=== PATIENT | female | born 1930 | race Caucasian/White ===

== ENCOUNTER 2017-12-30 00:24 | Inpatient (IN) | payer MEDICARE ==
[2017-12-30 01:10] LABS: Hemoglobin 11.9 g/dL (12.0-16.0); Red Blood Cell (RBC) Count 3.84 mill/uL (4.20-5.40); White Blood Cell (WBC) Count 7.2 thou/uL (4.8-10.8)
[2017-12-30 01:11] LABS: #Basophils 0.1 thou/uL (0.0-0.2); #Eosinphils 0.2 thou/uL (0.0-0.7); #Lymphocytes 2.8 thou/uL (1.20-3.40); #Monocytes 0.6 thou/uL (0.11-0.59); #Neutrophils 3.5 thou/uL (1.40-6.50); %Basophils 1.2 % (0.0-1.0); %Eosinophils 2.2 % (0.0-10.0); %Lymphocytes 38.4 % (21.0-51.0); %Monocytes 8.7 % (0.0-10.0); %Neutrophils 49.5 % (42.0-75.0); Mean Corpuscular HGB CONC 35.3 g/dL (32.0-36.0); Mean Corpuscular Volume 87.9 fL (78.0-98.0); Mean Platelet Volume 7.2 fL (7.4-10.4); Platelet Count 201 thou/uL (130-400); RBC Distribution Width 11.3 % (11.5-14.5)
[2017-12-30] MEDS ORDERED: Pantoprazole 40 MG VIAL ONE (01:12)
[2017-12-30] MEDS ORDERED: Pantoprazole 80 MG, Admixture Fee 1 EACH in Sodium Chloride 0.9% 100 ML IVP SCH (01:15)
[2017-12-30 01:18] LABS: PTT 32.9 SEC (22.9-36.1); Prothrombin Time 13.5 SEC (12.0-14.7)
[2017-12-30 01:26] LABS: ALT (SGPT) 9 U/L (8-55); AST (SGOT) 17 U/L (5-34); Albumin 3.7 g/dL (3.4-4.8); Alkaline Phosphatase 65 U/L (40-150); Anion Gap 14 mmol/L (10-20); BUN (Urea Nitrogen) 11 mg/dL (9.8-20.1); Bilirubin, Total 0.3 mg/dL (0.2-1.2); Calc. Creatinine Clearance 0 mL/min (70-130); Calcium 8.5 mg/dL (7.8-10.44); Carbon Dioxide 23 mmol/L (23-31); Chloride 107 mmol/L (98-107); Estimated GFR-MDRD 72; Globulin 2.5 g/dL (2.4-3.5); Glucose 89 mg/dL (83-110); Potassium 4.3 mmol/L (3.5-5.1); Protein, Total 6.2 g/dL (6.0-8.3); Sodium 140 mmol/L (136-145)
[2017-12-30] MEDS ORDERED: Lorazepam 2 MG/ML VIAL ONE (01:38)
[2017-12-30] MEDS ORDERED: Acetaminophen 325 MG TAB PO PRN (02:52)
[2017-12-30 03:53] LABS: #Basophils 0.1 thou/uL (0.0-0.2); #Eosinphils 0.2 thou/uL (0.0-0.7); #Lymphocytes 2.7 thou/uL (1.20-3.40); #Monocytes 0.7 thou/uL (0.11-0.59); #Neutrophils 4.2 thou/uL (1.40-6.50); %Basophils 1.1 % (0.0-1.0); %Eosinophils 2.1 % (0.0-10.0); %Lymphocytes 34.3 % (21.0-51.0); %Monocytes 8.9 % (0.0-10.0); %Neutrophils 53.6 % (42.0-75.0); Hemoglobin 10.7 g/dL (12.0-16.0); Mean Corpuscular HGB CONC 34.1 g/dL (32.0-36.0); Mean Corpuscular Hemoglobin 30.2 pg (27.0-31.0); Mean Corpuscular Volume 88.6 fL (78.0-98.0); Mean Platelet Volume 6.8 fL (7.4-10.4); Platelet Count 202 thou/uL (130-400); RBC Distribution Width 11.2 % (11.5-14.5); Red Blood Cell (RBC) Count 3.55 mill/uL (4.20-5.40); White Blood Cell (WBC) Count 7.8 thou/uL (4.8-10.8)
[2017-12-30 04:13] LABS: Anion Gap 10 mmol/L (10-20); BUN (Urea Nitrogen) 10 mg/dL (9.8-20.1); Calc. Creatinine Clearance 0 mL/min (70-130); Calcium 8.4 mg/dL (7.8-10.44); Carbon Dioxide 26 mmol/L (23-31); Chloride 109 mmol/L (98-107); Estimated GFR-MDRD 82; Glucose 117 mg/dL (83-110); Potassium 3.9 mmol/L (3.5-5.1); Sodium 141 mmol/L (136-145)
[2017-12-30] MEDS: Sodium Chloride 0.9% 1,000 ML IV SCH (04:45)
[2017-12-30 06:12] VITALS: BMI 29.2
[2017-12-30] MEDS: Levothyroxine Sodium 100 MCG TAB PO SCH (06:43)
[2017-12-30] MEDS ORDERED: Pantoprazole 40 MG VIAL IVP SCH (09:00)
--- NOTE | 2017-12-30 09:02 | HP ---
CHIEF COMPLAINT: Bloody stools. HISTORY OF PRESENT ILLNESS: Patient is an 87-year-old lady who lives with her family with a history of severe dementia who comes in to the hospital with complaints of bloody diarrhea x1 day. The patie nt's daughter who is at the bedside stated that the patient has been having on and off diarrhea since 12/20/2017 and this is most likely attributed to patient being previously constipated and patient be ing on three stool softeners. The patient's daughter stated that she took her off of the stool softe ners since she has been having intermittent diarrhea. She also stated that she did call her PCP's tim rse practitioner who is currently out of town and left a voicemail in regards to the intermediate aby rrhea. Patient's daughter stated that today when she went in to check on her mom to change her diape r, she noticed a significant maroonish colored stool and also some clots and when she was wiping her mother, she noticed a significant amount of blood in the stool which concerned her, so she brought he r into the hospital for further evaluation. The patient using any recent ibuprofen or Advil. She salguero s only been taking some Tylenol especially at nighttime. The patient is currently only on aspirin. She is not on any blood thinners either. Her last colonoscopy was many years ago according to the jose brink and she was told that she does have some diverticulosis. PAST MEDICAL HISTORY: She has a history of bradycardia, dementia, hypothyroidism, and questionable s eizures. PAST SURGICAL HISTORY: She does have history of pacemaker insertion, cholecystectomy, hysterectomy, ankle surgery and right shoulder surgery. FAMILY HISTORY: Mother had strokes. MEDICATIONS: She takes levothyroxine 100 mcg daily, melatonin at night, Tylenol two extra strength a t night. She takes potassium chloride daily and donepezil unknown dose daily. ALLERGIES: She is allergic to significant amount of medications which currently the patient's family did not bring in and was told to bring in medications as I mentioned above. REVIEW OF SYSTEMS: Unable to obtain since patient is very severely demented. PHYSICAL EXAMINATION: VITAL SIGNS: She is afebrile at 98.3, 18, 64, heart rate 160/100, 94% room air. GENERAL: She is awake and not oriented x3 at all. CARDIOVASCULAR: S1, S2 present, no murmurs, rubs or gallops. LUNGS: Clear to auscultation. No rhonchi or wheezes noted. ABDOMEN: Soft. Bowel sounds are present x2. No grimace on palpating the patient's abdomen area. EXTREMITIES: She does have some mild ankle edema which is greater on the left than the right. Pedal pulses are present x2. NEUROLOGIC: She is able to move all her 4 extremities. No deficits noted. Mentation tillman, she is a wake, alert; however, she is completely disoriented. SKIN: No lesions noted. LABORATORY DATA: Are as following; WBC of 7.2, hemoglobin 11.9, hematocrit 33.7 and platelets of 201 . Chemistry: Sodium of 140, potassium 4.3, BUN of 11, creatinine 0.76. ASSESSMENT AND PLAN: The patient is an 87-year-old female who presents to the hospital with dark blo ese hematochezia x1. 1. Hematochezia. Currently, patient is stable. Vital signs are stable. Her hemoglobin and hematoc rit is stable. We will type and screen her. We will also consult GI. She has been started on a PPI ; however, I am not sure if this is most likely a lower gastrointestinal bleed. I did not mention th is, but the daughter states that she did have a history of ulcer when patient's daughter was young. She remembers her father saying that. We will start with some conservative management. Also, if she does have diarrhea, we will send it for stool studies. The patient has been eating and drinking. W e will continue patient on clear liquid and await GI's recommendation. 2. Mild anemia. We will continue to monitor. This is most likely secondary to her current GI hemat ochezia. 3. Dementia. We will continue her home medications. 4. Hypothyroidism. We will continue her home medications.
[2017-12-30] MEDS ORDERED: hydrALAZINE 20 MG/ML VIAL SLOW IVP PRN (09:44)
--- NOTE | 2017-12-30 14:30 | PDOC.EVN ---
Event Note - Event Note Event Note: Pt seen and examined. care discussed w daughter at bedside.\ Pt very confsed and trying to get OOB No more bloody stools so far. NAD CTA b/l RRR H/H stable. cont PPI, follow GI recs-pending am labs
[2017-12-30] MEDS ORDERED: GoLYTELY 4,000 ml Bottle PO SCH (18:00)
[2017-12-30] MEDS ORDERED: Ziprasidone 20 MG VIAL IM SCH (18:30)
[2017-12-30] MEDS ORDERED: Sterile Water 10 ML VIAL FS SCH (18:30)
[2017-12-30] MEDS: Pantoprazole 40 MG VIAL IVP SCH (20:29)
--- NOTE | 2017-12-31 00:58 | CON ---
DATE OF CONSULTATION: 12/30/2017 REFERRING PHYSICIAN: Dr. June Agudelo, [facility] [place] [facility]. REASON FOR CONSULTATION: Hematochezia. HISTORY OF PRESENT ILLNESS: Carla Menon is a very pleasant 87-year-old female, hospitaliz ed overnight because hematochezia. The patient is awake and alert, but does not communicate. She al so has history of hard of hearing. She also has history of dementia. The patient really does not ve rbalize anything. The patient's daughter was in the room and she was able to give me the history. A pparently, Ms. Menon living with her daughter. The patient does see Dr. Tamia Christine on a regul ar basis. She has been on a bowel regimen consist of different stool softeners and she has a stool e very day. She has not been constipated. Apparently a week ago, she had diarrhea for several days. Because of the diarrhea, her daughter stopped giving the stool softener. However, Ms. Menon is sti ll having regular bowel movements. The patient's daughter noticed her mother passing a fairly large amount of blood and blood clot in the stool. She changed the diaper and then she had another bloody stool subsequently. The patient was brought to the ER because of above reason. The patient has no p rior history of any GI bleeding. The patient was constipated before and started on stool softener an d she began to have regular stool. There is no history of abdominal pain, nausea, or vomiting. She had another small bloody stool today as per the nurses. The lab data shows admitting CBC, WBC 7200; hemoglobin 11.9, dropping to 10.7 this morning; hematocrit 33.7, dropping to 31.5. She has no releva nt history. ALLERGIES: As listed in the chart. SOCIAL HISTORY: The patient does not smoke or drink alcohol. MEDICAL ILLNESSES: 1. Dementia. 2. Hypothyroidism. 3. Bradycardia. 4. Questionable history of seizures. 5. Status post pacemaker insertion. 6. Status post cholecystectomy. 7. Status post hysterectomy. 8. History of ankle surgery and right shoulder surgery. MEDICATIONS: List reviewed, which include levothyroxine; melatonin; Tylenol Extra Strength during ni ght time; also potassium supplement; and donepezil, the dose is unknown. FAMILY HISTORY: Mother had a stroke. REVIEW OF SYSTEMS: A 10-point systems review unable to obtain because of the patient's dementia. PHYSICAL EXAMINATION: GENERAL: Revealed a very pleasant female, appears very comfortable, in no distress. She d oes not verbalize. VITAL SIGNS: Afebrile. Her pulse is 64, blood pressure 160/90. HEENT: Conjunctivae clear. NECK: Supple. No adenitis or thyromegaly noted. CARDIOVASCULAR SYSTEM: First and second heart sounds normal. LUNGS: Clear to auscultation. ABDOMEN: Soft to palpate. Abdomen is nontender. There is no organomegaly or masses. Bowel sounds normal. EXTREMITIES: Reveal no edema. I wanted to do a rectal exam at the bedside and the patient got very agitated that really does not wa nt to have a rectal exam. The family was in the room and they tried to does not want to have a rectal exam. CLINICAL IMPRESSION: 1. Hematochezia, etiology unclear. The patient has no abdominal pain, nausea or vomiting. Abdomina l exam revealed benign and nontender. Blood count has dropped slightly from 11.9 to 10.7. 2. Mild anemia due to blood loss. 3. Dementia. 4. Hypothyroidism. 5. Status post pacemaker implant. I had a long talk with the patient's daughter about the plan of treatment, one is to observe and watc h and not to do anything, will assess colonoscopy. She was explained to colonoscopy prep puente n of GoLYTELY and cleaning out. The patient will be cleaned out, colonoscopy can be done. The patie nt's family wishes to proceed with colonoscopy. I will start the GoLYTELY prep today and plan for co lonoscopy tomorrow morning. In the meantime, we would recommend follow up H&H and transfuse as neede d.
[2017-12-31] MEDS: Sodium Chloride 0.9% 1,000 ML IV SCH (01:00)
[2017-12-31] MEDS: Levothyroxine Sodium 100 MCG TAB PO SCH (04:17)
[2017-12-31 04:49] LABS: Hemoglobin 8.1 g/dL (12.0-16.0)
[2017-12-31 04:57] LABS: Anion Gap 11 mmol/L (10-20); BUN (Urea Nitrogen) 9 mg/dL (9.8-20.1); Calc. Creatinine Clearance 78 mL/min (70-130); Calcium 8.2 mg/dL (7.8-10.44); Carbon Dioxide 25 mmol/L (23-31); Chloride 110 mmol/L (98-107); Estimated GFR-MDRD 86; Glucose 103 mg/dL (83-110); Potassium 3.6 mmol/L (3.5-5.1); Sodium 142 mmol/L (136-145)
[2017-12-31] MEDS: Pantoprazole 40 MG VIAL IVP SCH ×2 (08:09→21:09)
--- NOTE | 2017-12-31 14:03 | PDOC.PN ---
- Subjective Encounter Start Date: 12/31/17 Encounter Start Time: 14:01 Subjective: pt non cooperative this am.would not answer Qs or open eyes. -: RN report few bloody BM overnght - Objective Resuscitation Status: Resuscitation Status DNR:Do Not Resuscitate MAR Reviewed: Yes Vital Signs & Weight: Vital Signs (12 hours) Temp Pulse Resp BP Pulse Ox 12/31/17 12:42 98.2 F 72 20 179/73 H 94 L 12/31/17 08:00 97.4 F L 72 20 12/31/17 04:00 97.4 F L 72 20 135/62 94 L Weight Weight 175 lb 6 oz I&O: 12/30/17 12/31/17 01/01/18 06:59 06:59 06:59 Intake Total 1080 Balance 1080 Result Diagrams: 12/31/17 04:01 12/31/17 04:01 Phys Exam - Physical Examination Constitutional: NAD HEENT: PERRLA, moist MMs, sclera anicteric, oral pharynx no lesions Neck: no nodes, no JVD, supple, full ROM Respiratory: no wheezing, no rales, no rhonchi, clear to auscultation bilateral Cardiovascular: RRR, no significant murmur, no rub Gastrointestinal: soft, non-tender, no distention, positive bowel sounds Musculoskeletal: no edema, pulses present Neurological: non-focal, normal sensation, moves all 4 limbs Skin: no rash Dx/Plan (1) Lower GI bleed Code(s): K92.2 - GASTROINTESTINAL HEMORRHAGE, UNSPECIFIED Status: Acute (2) Blood loss anemia Code(s): D50.0 - IRON DEFICIENCY ANEMIA SECONDARY TO BLOOD LOSS (CHRONIC) Status: Acute Comment: Monitor closely (3) Hypothyroid Code(s): E03.9 - HYPOTHYROIDISM, UNSPECIFIED Status: Chronic (4) Dementia Code(s): F03.90 - UNSPECIFIED DEMENTIA WITHOUT BEHAVIORAL DISTURBANCE Status: Chronic - Plan PT/OT, psychosocial rehabilitation counselor, out of bed/ambulate, DVT proph w/SCDs Colonoscopy today.monitor H/H -: transfuse if symptomatic or <7. -: am labs -: home meds as below. -: HD stable for now * . Review of Systems - Review of Systems Other: can not be obtained due to dementia - Medications/Allergies Allergies/Adverse Reactions: Allergies Allergy/AdvReac Type Severity Reaction Status Date / Time morphine Allergy Severe Anaphylaxis Verified 12/30/17 04:44 azithromycin Allergy Unknown Verified 12/30/17 04:46 carbamazepine [From Tegretol] Allergy Unknown Verified 12/30/17 04:49 levofloxacin [From Levaquin] Allergy Unknown Verified 12/30/17 04:45 phenobarbital Allergy Unknown Verified 12/30/17 04:49 tetracycline Allergy Unknown Verified 12/30/17 04:49 fenofibrate Allergy Verified 12/30/17 04:53 Sulfa (Sulfonamide Allergy Verified 12/30/17 04:44 Antibiotics) Medications: Current Medications Acetaminophen (Tylenol) 650 mg PO Q4H PRN PRN Reason: Headache/Fever or Pain Hydralazine HCl (Apresoline) 10 mg SLOW IVP Q4H PRN PRN Reason: SBP>165 Sodium Chloride (Normal Saline 0.9%) 1,000 mls @ 50 mls/hr IV .Q20H KALE Last Admin: 12/31/17 01:00 Dose: 1,000 mls Levothyroxine Sodium (Synthroid) 100 mcg PO 0600 KALE Last Admin: 12/31/17 04:17 Dose: 100 mcg Pantoprazole Sodium (Protonix) 40 mg IVP Q12HR KALE Last Admin: 12/31/17 08:09 Dose: 40 mg Quetiapine Fumarate (Seroquel) 25 mg PO HSPRN PRN PRN Reason: Agitation Last Admin: 12/31/17 04:17 Dose: 25 mg Sodium Chloride (Flush - Normal Saline) 10 ml IVF Q12HR KALE Last Admin: 12/31/17 08:09 Dose: 10 ml Sodium Chloride (Flush - Normal Saline) 10 ml IVF PRN PRN PRN Reason: Saline Flush
[2017-12-31] MEDS ORDERED: Labetalol 100 MG/20 ML MDV ONE (14:21)
[2017-12-31] MEDS ORDERED: PROPOFOL 200 MG/20 ML VIAL ONE (14:21)
[2017-12-31] MEDS ORDERED: Melatonin 3 MG TAB PO SCH (22:30)
[2017-12-31] MEDS ORDERED: Lorazepam 1 MG TAB PO SCH (22:30)
[2018-01-01] MEDS: Sodium Chloride 0.9% 1,000 ML IV SCH ×2 (03:17→23:10)
[2018-01-01 04:24] LABS: Hemoglobin 8.2 g/dL (12.0-16.0)
[2018-01-01] MEDS: Levothyroxine Sodium 100 MCG TAB PO SCH (05:30)
[2018-01-01] MEDS: Pantoprazole 40 MG VIAL IVP SCH ×2 (08:01→20:58)
[2018-01-01] MEDS ORDERED: Lorazepam 1 MG TAB PO SCH (12:00)
[2018-01-01] MEDS ORDERED: Melatonin 3 MG TAB PO SCH (12:00)
[2018-01-01 13:50] LABS: Hemoglobin 9.2 g/dL (12.0-16.0)
[2018-01-01] MEDS ORDERED: traZODone HCl 50 MG TAB PO PRN (15:33)
--- NOTE | 2018-01-01 15:35 | PDOC.PN ---
- Subjective Encounter Start Date: 01/01/18 Encounter Start Time: 15:34 Subjective: pt eating lunch & then got agitated -: daughter at bedside.no more bloody BMS -: pt discharged but became lethargic,so DC held.H.H stable - Objective Resuscitation Status: Resuscitation Status DNR:Do Not Resuscitate Vital Signs & Weight: Vital Signs (12 hours) Temp Pulse Resp BP BP Pulse Ox 01/01/18 13:08 81 94 L 01/01/18 08:00 97.4 F L 60 16 100 01/01/18 07:46 97.4 F L 60 16 155/81 H 100 01/01/18 04:00 98.1 F 63 20 166/79 H 96 Weight Admit Weight 175 lb 6 oz Weight 175 lb 6 oz I&O: 12/31/17 01/01/18 01/02/18 06:59 06:59 06:59 Intake Total 1080 Balance 1080 Result Diagrams: 01/01/18 13:41 12/31/17 04:01 Phys Exam - Physical Examination Constitutional: NAD HEENT: PERRLA, moist MMs, sclera anicteric, oral pharynx no lesions Neck: no JVD Respiratory: no wheezing, no rales Cardiovascular: RRR Gastrointestinal: soft, non-tender, no distention, positive bowel sounds Musculoskeletal: no edema, pulses present Neurological: moves all 4 limbs agitation Dx/Plan (1) Lower GI bleed Code(s): K92.2 - GASTROINTESTINAL HEMORRHAGE, UNSPECIFIED Status: Acute Comment: s/p colonoscopy -shows only diverticulosis.No active bleed (2) Blood loss anemia Code(s): D50.0 - IRON DEFICIENCY ANEMIA SECONDARY TO BLOOD LOSS (CHRONIC) Status: Acute Comment: Monitor closely (3) Hypothyroid Code(s): E03.9 - HYPOTHYROIDISM, UNSPECIFIED Status: Chronic (4) Dementia Code(s): F03.90 - UNSPECIFIED DEMENTIA WITHOUT BEHAVIORAL DISTURBANCE Status: Chronic - Plan plan discussed w/ family, PT/OT, DVT proph w/SCDs Hold DC.recheck H/H tomorrow. -: HD stable. no changes in Vitals .monitor -: avoid narcotics/sedatives in day.will give mild sedative at night -: re assess tomorrow am * . Review of Systems - Review of Systems Other: can not be obtained due to extreme dementia and agitation - Medications/Allergies Allergies/Adverse Reactions: Allergies Allergy/AdvReac Type Severity Reaction Status Date / Time morphine Allergy Severe Anaphylaxis Verified 12/30/17 04:44 azithromycin Allergy Unknown Verified 12/30/17 04:46 carbamazepine [From Tegretol] Allergy Unknown Verified 12/30/17 04:49 levofloxacin [From Levaquin] Allergy Unknown Verified 12/30/17 04:45 phenobarbital Allergy Unknown Verified 12/30/17 04:49 tetracycline Allergy Unknown Verified 12/30/17 04:49 fenofibrate Allergy Verified 12/30/17 04:53 Sulfa (Sulfonamide Allergy Verified 12/30/17 04:44 Antibiotics) Medications: Current Medications Acetaminophen (Tylenol) 650 mg PO Q4H PRN PRN Reason: Headache/Fever or Pain Hydralazine HCl (Apresoline) 10 mg SLOW IVP Q4H PRN PRN Reason: SBP>165 Sodium Chloride (Normal Saline 0.9%) 1,000 mls @ 50 mls/hr IV .Q20H KALE Last Admin: 01/01/18 03:17 Dose: 1,000 mls Levothyroxine Sodium (Synthroid) 100 mcg PO 0600 KALE Last Admin: 01/01/18 05:30 Dose: 100 mcg Pantoprazole Sodium (Protonix) 40 mg IVP Q12HR [facility]ALE Last Admin: 01/01/18 08:01 Dose: 40 mg Sodium Chloride (Flush - Normal Saline) 10 ml IVF Q12HR KALE Last Admin: 01/01/18 08:01 Dose: 10 ml Sodium Chloride (Flush - Normal Saline) 10 ml IVF PRN PRN PRN Reason: Saline Flush Trazodone HCl (Desyrel) 50 mg PO HS PRN PRN Reason: insomina Stop: 01/01/18 21:01
[2018-01-02 04:46] LABS: Hemoglobin 8.8 g/dL (12.0-16.0)
[2018-01-02 05:07] LABS: Anion Gap 9 mmol/L (10-20); BUN (Urea Nitrogen) 8 mg/dL (9.8-20.1); Calc. Creatinine Clearance 71 mL/min (70-130); Calcium 8.1 mg/dL (7.8-10.44); Carbon Dioxide 28 mmol/L (23-31); Chloride 107 mmol/L (98-107); Estimated GFR-MDRD 78; Glucose 116 mg/dL (83-110); Potassium 3.1 mmol/L (3.5-5.1); Sodium 141 mmol/L (136-145)
[2018-01-02] MEDS: Levothyroxine Sodium 100 MCG TAB PO SCH (06:06)
[2018-01-02] MEDS ORDERED: Diphenoxylate HCl/Atropine Tablet PO PRN (11:53)
[2018-01-02] MEDS: D5 1/2 NS w/20 mEq KCL 1,000 ML IV SCH (14:14)
--- NOTE | 2018-01-02 14:40 | PDOC.PN ---
- Subjective Encounter Start Date: 01/02/18 Encounter Start Time: 14:38 Subjective: daughter at bedside,reports loose stools without blood -: reports that her mom is still very weak - Objective Resuscitation Status: Resuscitation Status DNR:Do Not Resuscitate MAR Reviewed: Yes Vital Signs & Weight: Vital Signs (12 hours) Temp Pulse Resp BP Pulse Ox 01/02/18 08:43 99.3 F 102 H 16 164/86 H 94 L 01/02/18 08:00 99.3 F 102 H 16 94 L 01/02/18 05:20 97.9 F 94 18 165/73 H 94 L Weight Admit Weight 175 lb 6 oz Weight 175 lb 6 oz I&O: 01/01/18 01/02/18 01/03/18 06:59 06:59 06:59 Intake Total 100 Balance 100 Result Diagrams: 01/02/18 04:03 01/02/18 04:03 Additional Labs: Microbiology 01/01/18 15:32 Stool - Liquid Stool Lactoferrin - Final 01/01/18 15:32 Stool - Liquid Shiga Toxin Test - Final 01/01/18 15:32 Stool - Liquid Escherichia coli 0157 Culture - Final 01/01/18 15:32 Stool - Liquid Stool Culture - Preliminary Labs reviewed. Iron level -30 Phys Exam - Physical Examination Constitutional: NAD pale HEENT: PERRLA, moist MMs, sclera anicteric, oral pharynx no lesions Neck: no JVD Respiratory: no wheezing, no rales, no rhonchi, clear to auscultation bilateral Cardiovascular: RRR, no significant murmur Gastrointestinal: soft, non-tender, no distention, positive bowel sounds Musculoskeletal: no edema, pulses present Neurological: non-focal, normal sensation, moves all 4 limbs Dx/Plan (1) Lower GI bleed Code(s): K92.2 - GASTROINTESTINAL HEMORRHAGE, UNSPECIFIED Status: Acute Comment: s/p colonoscopy -shows only diverticulosis.No active bleed (2) Hypokalemia Code(s): E87.6 - HYPOKALEMIA Status: Acute (3) Blood loss anemia Code(s): D50.0 - IRON DEFICIENCY ANEMIA SECONDARY TO BLOOD LOSS (CHRONIC) Status: Acute Comment: Monitor closely (4) Hypothyroid Code(s): E03.9 - HYPOTHYROIDISM, UNSPECIFIED Status: Chronic (5) Dementia Code(s): F03.90 - UNSPECIFIED DEMENTIA WITHOUT BEHAVIORAL DISTURBANCE Status: Chronic (6) Diarrhea Code(s): R19.7 - DIARRHEA, UNSPECIFIED Status: Acute - Plan plan discussed w/ family, out of bed/ambulate, DVT proph w/SCDs pt ernie pre syncopal due to hypovolemia w Poor PO intake & blood loss -: will start gentle IVF.HD stable -: replace & recheck Potassium. -: syart Lomotil as samina studies Negative so far. add Cdiff check -: Give 1 dose IV iron for DONNY. * . am labs ernie home in am w HH.daughter does not want rehab at this time and pt also a poor candidate due to advanced dementia Review of Systems - Review of Systems Other: can not be obtained due to dementia - Medications/Allergies Allergies/Adverse Reactions: Allergies Allergy/AdvReac Type Severity Reaction Status Date / Time morphine Allergy Severe Anaphylaxis Verified 12/30/17 04:44 azithromycin Allergy Unknown Verified 12/30/17 04:46 carbamazepine [From Tegretol] Allergy Unknown Verified 12/30/17 04:49 levofloxacin [From Levaquin] Allergy Unknown Verified 12/30/17 04:45 phenobarbital Allergy Unknown Verified 12/30/17 04:49 tetracycline Allergy Unknown Verified 12/30/17 04:49 fenofibrate Allergy Verified 12/30/17 04:53 Sulfa (Sulfonamide Allergy Verified 12/30/17 04:44 Antibiotics) Medications: Current Medications Acetaminophen (Tylenol) 650 mg PO Q4H PRN PRN Reason: Headache/Fever or Pain Diphenoxylate HCl/Atropine (Lomotil) 1 tab PO Q6H PRN PRN Reason: Diarrhea/Loose Stools Ferrous Sulfate (Ferrous Sulfulte) 300 mg PO BID [facility] Hydralazine HCl (Apresoline) 10 mg SLOW IVP Q4H PRN PRN Reason: SBP>165 Potassium Chloride/Dextrose/Sod Cl (D5 1/2 Ns W/20 Meq Kcl) 1,000 mls @ 75 mls/ hr IV .[id number] [facility] Last Admin: 01/02/18 14:14 Dose: 1,000 mls Iron Sucrose (Venofer) 200 mg SLOW IVP ONE [facility] Levothyroxine Sodium (Synthroid) 100 mcg PO 0600 [facility] Last Admin: 01/02/18 06:06 Dose: 100 mcg Pantoprazole Sodium (Protonix) 40 mg PO BID [facility] Last Admin: 01/02/18 08:44 Dose: 40 mg Potassium Chloride (Klor-Con) 40 meq PO BID-[facility] Last Admin: 01/02/18 08:45 Dose: 40 meq Sodium Chloride (Flush - Normal Saline) 10 ml IVF Q12HR [facility] Last Admin: 01/02/18 08:45 Dose: Not Given Sodium Chloride (Flush - Normal Saline) 10 ml IVF PRN PRN PRN Reason: Saline Flush
[2018-01-02] MEDS ORDERED: IRON SUCROSE COMPLEX 100 MG/5 ML SLOW IVP SCH (14:45)
[2018-01-02] MEDS ORDERED: Sodium Ferric Gluconate 250 MG in Sodium Chloride 0.9% 100 ML IVPB SCH (15:00)
[2018-01-03] MEDS: D5 1/2 NS w/20 mEq KCL 1,000 ML IV SCH (03:00)
[2018-01-03 05:28] LABS: Hemoglobin 8.7 g/dL (12.0-16.0)
[2018-01-03 06:00] LABS: Anion Gap 12 mmol/L (10-20); BUN (Urea Nitrogen) 9 mg/dL (9.8-20.1); Calc. Creatinine Clearance 76 mL/min (70-130); Calcium 8.1 mg/dL (7.8-10.44); Carbon Dioxide 22 mmol/L (23-31); Chloride 106 mmol/L (98-107); Estimated GFR-MDRD 83; Glucose 129 mg/dL (83-110); Potassium 3.5 mmol/L (3.5-5.1); Sodium 136 mmol/L (136-145)
[2018-01-03] MEDS: Levothyroxine Sodium 100 MCG TAB PO SCH (06:05)
[2018-01-03 08:08] VITALS: BP 171/93
--- NOTE | 2018-01-03 09:37 | PQF ---
CLINICAL DOCUMENTATION IMPROVEMENT CLARIFICATION FORM: ICD-10 Updated PLEASE DO AN ADDENDUM TO THE PROGRESS NOTE WITH ANY DOCUMENTATION UPDATES OR ADDITIONS AND CARRY THROUGH TO DC SUMMARY. THANK YOU. DATE: 01/03/18 ATTN: DR. BLANDON Please exercise your independent, professional judgment in responding to the clarification form. Clinical indicators are provided on the bottom of this form for your review Please check appropriate box(s): [ x ] Acute blood loss anemia [ ] Post-op anemia related to acute blood loss [ ] Anemia: [ ] Aplastic [ ] Nutritional [ ] Drug induced (specify) ___ [ ] Hemolytic [ ] Hereditary [ ] Acquired [ ] Autoimmune [ ] Non-autoimmune [ ] Enzyme disorder [ ] Chronic Anemia: [ ] Blood loss [ ] Hemolytic [ ] Simple [ ] Due to Vitamin B12 Deficiency [ ] Other [ ] Anemia of Chronic Disease (please specify) [ ] Anemia due to Neoplasm: [ ] Primary [ ] Secondary [ ] Anemia due to (please choose): [ ] Due to Chemotherapy [ ] Due to Radiotherapy [ ] Due to Immunotherapy [ ] Other diagnosis [ ] Unable to determine In addition, please specify: Present on Admission (POA): [ X ] Yes [ ] No [ ] Unable to determine For continuity of documentation, please document condition throughout progress notes and discharge summary. Thank You. CLINICAL INDICATORS - SIGNS / SYMPTOMS / LABS N 12/30: 10.7 N 12/31: 8.1 PROGRESS NOTE 12/30: "MILD ANEMIA D/T BLOOD LOSS" PROGRESS NOTE 12/31: "BLOOD LOSS ANEMIA-IRON DEFICIENCY ANEMIA SECONDARY TO BLOOD LOSS-CHRONIC RISKS: DIVERTICULOSIS TREATMENT: SERIAL LABS GI CONSULT (This form is maintained as a part of the permanent medical record) 2014 [employer]. All Rights Reserved [email or web address] [email or web address] Office: [phone] [facility]
--- NOTE | 2018-01-03 09:57 | PQF ---
CLINICAL DOCUMENTATION IMPROVEMENT CLARIFICATION FORM: ICD-10 Updated PLEASE DO AN ADDENDUM TO THE PROGRESS NOTE WITH ANY DOCUMENTATION UPDATES OR ADDITIONS AND CARRY THROUGH TO DC SUMMARY. THANK YOU. DATE: 01/03/18 ATTN: DR. BLANDON Please exercise your independent, professional judgment in responding to the clarification form. 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 Thank You. CLINICAL INDICATORS - SIGNS / SYMPTOMS / LABS NURSES NOTE 12/30: "RN AND TECH TRIED TO TAKE BP BUT PT WAS SO COMBATIVE AND UNCOOPERATIVE." NURSES NOTE 01/01: "PT BECAME VERY AGITATED AND COMBATIVE." PROGRESS NOTE 01/01: "DEMENTIA AND AGITATION" RISKS: DEMENTIA ADVANCED AGE TREATMENT: DAUGHTER STAYING AT BEDSIDE TO ASSIST WITH REORIENTATION (This form is maintained as a part of the permanent medical record) 2015 [employer]. All Rights Reserved SANDEE [email or web address] Office: [phone] [facility]
--- NOTE | 2018-01-03 15:40 | PQF ---
CLINICAL DOCUMENTATION IMPROVEMENT CLARIFICATION FORM: ICD-10 Updated PLEASE DO AN ADDENDUM TO THE PROGRESS NOTE WITH ANY DOCUMENTATION UPDATES OR ADDITIONS AND CARRY THROUGH TO DC SUMMARY. THANK YOU. DATE: 01/03/18 ATTN: DR. BLANDON Please exercise your independent, professional judgment in responding to the clarification form. Clinical indicators are provided on the bottom of this form for your review Please check appropriate box(s): [ ] Hemiplegia Specify: [ ] Non dominant side [ ] Dominant side Status: [ ] Complete [ ] Incomplete [ ] Paraplegia Specify: [ ] Non dominant side [ ] Dominant side Status: [ ] Complete [ ] Incomplete [ ] Quadriplegia [ ] Functional Quadriplegia (specify underlying cause) [ X ] Weakness (please specify anatomical area) Specify: [ ] Non dominant side [ ] Dominant side [X ] Other diagnosis _due to dementia and chronic deconditioning [ ] Unable to determine In addition, please specify: Present on Admission (POA): [ X] Yes [ ] No [ ] Unable to determine CLINICAL INDICATORS - SIGNS / SYMPTOMS / LABS TOTAL CARE/INCONTINENT/WEARS BRIEF/BEDFAST RISKS: SEVERE DEMENTIA NONVERBAL NOT COMPLETELY ORIENTED TREATMENT: DAUGHTER AT BEDSIDE TO ASSIST EXTRA NURSING CARE TO ASSIST WITH VITAL SIGNS AND MANAGEMENT OF IV (This form is maintained as a part of the permanent medical record) 2014 [employer] All Rights Reserved [email or web address] [email or web address] Office: [phone] [facility]
[2018-01-03 16:08] VITALS: TEMP 98.5
--- NOTE | 2018-01-04 00:07 | DIS ---
DATE OF ADMISSION: 12/30/2017 DATE OF DISCHARGE: 01/03/2018 PRIMARY CARE PHYSICIAN: Tamia Christine M.D. DISCHARGE DIAGNOSES: 1. Acute blood loss anemia, mild in nature. 2. Mild gastrointestinal bleed secondary to diverticulosis without any evidence of diverticulitis. 3. Hypokalemia, resolved. 4. Hypothyroidism. 5. Chronic Alzheimer dementia. 6. Diarrhea, resolved. C. diff negative. DISCHARGE MEDICATIONS: New medications include ferrous sulfate 300 mg p.o. b.i.d. oral solution and Pepcid AC 20 mg p.o. b.i.d. Otherwise, resume home medications as follows: Aspirin 81 mg daily, don epezil 10 mg daily, melatonin daily, levothyroxine 100 mcg daily, potassium chloride 10 mEq p.o. b.i. d., Celexa 10 mg daily, D-Mannose 500 mg p.o. b.i.d., Ativan p.r.n. DISCHARGE DISPOSITION: Home with home health. PROCEDURES DURING HOSPITAL: Colonoscopy. Formal results are not in the [facility], but in the chart, it says diverticulosis. CONSULTATIONS: Gastroenterology, Dr. Donaldson. HISTORY OF PRESENT ILLNESS: Ms. Menon is a pleasant 87-year-old female who lives at home with her daughter with history of advanced dementia and hypothyroidism who presented to the ER with complaints of bright red blood per rectum as seen by her daughter. Upon presentation, she was hemodynamically stable. Her H&H was stable with a hemoglobin of 11.9. She was admitted for further workup. She was started on PPI and GI was consulted. Please see admission history and physical for details. HOSPITAL COURSE: The patient did not have any bloody bowel movement during her hospitalization. Her H&H was trended and she did drop a little bit from 10.7-8.1 attributable to dilutional anemia from I V fluids. She remained hemodynamically stable. She was seen by Gastroenterology and underwent colon oscopy which showed diverticulosis without any evidence of diverticulitis or active bleed. She was r esuscitated with IV iron. Her hospitalization was prolonged as the daughter did not feel comfortable taking her home. Rehabilitation option was made available to them, but because of advanced dementia , the daughter does not feel that the patient will be a good rehab candidate and I agree to that. OT, PT has seen the patient and home health will be arranged prior to discharge. She was seen and examined prior to discharge. PHYSICAL EXAMINATION: VITAL SIGNS: Temperature 98.2, pulse of 92, respirations 18, saturating 93% on room air, blood press ure 171/93. GENERAL: No acute distress, awake, alert, oriented x3. CHEST: Clear to auscultation without any wheezing, rales or rhonchi. HEART: Rate and rhythm is regular without any murmur, rubs or gallops. LABORATORY DATA: Hemoglobin 8.7 with hematocrit 24.8. Serum chemistries unremarkable. Her Clostrid ium difficile testing is negative. Stool culture negative. DISCHARGE INSTRUCTIONS: She is instructed to follow with primary care physician in 1-2 weeks, as wel l as given referral for outpatient followup with Gastroenterology, Dr. Donaldson. Discharge plan was discussed with the patient and her daughter and daughter verbalized understanding. The patient remains pleasantly demented.
--- NOTE | 2018-01-07 01:37 | OP ---
DATE OF SURGERY: 12/31/2017 OPERATIVE PROCEDURE: Colonoscopy. PREOPERATIVE DIAGNOSES: Gastrointestinal hemorrhage, hematochezia. POSTOPERATIVE DIAGNOSES: 1. Diffuse colonic diverticulosis of the sigmoid colon all the way to cecum. 2. Hemorrhoids. At the time of endoscopy, no active bleeding was seen, but however, there was small dark brown stool with some old blood. PROCEDURE IN DETAIL: The patient was placed on her left lateral position and was given sedation by A nesthesia Department. A rectal exam was done before the scope was advanced into the rectum. No lesi ons felt on rectal exam. A [employer]ax video colonoscope was introduced into rectum, advanced all the way to the cecum. The prep was excellent. The mucosa appears normal throughout the colon. The patient had no blood in the colon during endoscopy. The ____ appears soft. However, she was found to have diffuse colonic diverticulosis of the sigmoid colon all the way to cecum. Small diagonal over the le ft colon was filled with some old blood. The appendical opening, ileocecal valve, cecum, no patholog y seen. The ascending colon, hepatic flexure, transverse colon, descending colon, and sigmoid colon showed scattered diverticular disease. Rectum had hemorrhoids. RECOMMENDATIONS: 1. Diet as tolerated. 2. She is clinically stable ____.
== END 2018-01-03 16:31 | disposition home health service (06) | DRG 378 ==
LOC: ERS 00:24 → T4-B 02:26
PROVIDERS: ADMIT Internal Medicine; ATTEND Internal Medicine
PROC: 0DJD8ZZ Inspection of Lower Intestinal Tract, Via Natural or Artificial Opening Endoscopic (ICD-10-PCS; principal; 2017-12-31)
DX: K57.31 Diverticulosis of large intestine without perforation or abscess with bleeding (principal); D62 Acute posthemorrhagic anemia; E87.6 Hypokalemia; E03.9 Hypothyroidism, unspecified; G30.9 Alzheimer's disease, unspecified; F02.80 Dementia in other diseases classified elsewhere, unspecified severity, without behavioral disturbance, psychotic disturbance, mood disturbance, and anxiety; K64.9 Unspecified hemorrhoids; R19.7 Diarrhea, unspecified; Z95.0 Presence of cardiac pacemaker
CPT/HCPCS: 36415; 80048; 80053; 83540; 83630; 85014; 85018; 85025; 85610; 85730; 86850; 86900; 86901; 87045; 87046; 87324; 87449; 87899; 96365; 96366; 96375; 96376; A4216; C9113; G8978-GP-CL; G8979-GP-CJ; G8987-GO-CK; G8988-GO-CI; J2060; J2704; J2916; J3486; J7050